=== PATIENT | female | born 1975 | race Caucasian/White ===

== ENCOUNTER 2025-08-27 19:35 | Emergency (ER) | payer BC, SELFPAY ==
[2025-08-27 19:38] VITALS: BP 112/74; PULSE 80; TEMP 36.6; O2SAT 100; BMI 25.8
--- NOTE | 2025-08-27 20:02 | XR_ITS ---
The [address] [address] Patient Name: ZACHARY TARANGO MRN: [id number] date: 1975 Sex: F Assigned Patient Location: ER Current Patient Location: Accession/Order Number: [id number] Exam Date: 08/27/2025 20:05 Report Date: 08/28/2025 07:52 At the request of: ANDREA CONCEPCION Procedure: XR ankle RT min 3V RIGHT ANKLE - 3 views CLINICAL DATA: Patient fell into hole yesterday. Previous ankle surgery. COMPARISON: None AP, lateral and oblique views were obtained. There are syndesmosis screws, one of which is fractured in 2 places. There is also a cannulated screw and K wire at the medial malleolus. There is old underlying fracture deformity. No definite acute fractures or dislocation are seen. There is anterolateral soft tissue swelling. XR/XR ankle RT min 3V IMPRESSION: CHRONIC FRACTURES WITH HARDWARE FAILURE. NO DEFINITE ACUTE BONY INJURY. SOFT TISSUE SWELLING. Impression dictated by: Marbella Lovell M.D. 08/28/2025 7:52 AM Dictation Location: [place] [address] Electronically authenticated by: [id number] Y Date: 08/28/2025 07:52
--- NOTE | 2025-08-27 20:02 | ED.LOWEXI1 ---
HPI HPI - Extremity Injury (Lower) General Chief Complaint: Extremity Injury, Lower Stated Complaint: LE INJURY Time Seen by Provider: 08/27/25 19:58 Source: patient and family Mode of arrival: walk-in Limitations: no limitations History of Present Illness MD complaint: Reports ankle injury Onset (ago): day(s) Type of Injury: Reports eversion Place: Reports street/outdoors Severity: moderate Relieving factors: Reports rest Exacerbating factors: Reports weight bearing and movement Context: Reports walking Associated symptoms: Reports snap/pop sensation, swelling and able to partially bear weight Treatments prior to arrival: Reports cold therapy Related Data Home Medications ?Medication ?Instructions ?Recorded ?Confirmed gabapentin 600 mg tablet mg 08/27/25 methocarbamol 750 mg tablet mg 08/27/25 spironolactone 50 mg tablet mg 08/27/25 Allergies Allergy/AdvReac Type Severity Reaction Status Date / Time Penicillins Allergy Hives Verified 08/27/25 19:43 Opioid HPI Opioid Management Most Recent Pain and Opioid Data: Last Pain Scale 8 Today, 19:48 Last ED Pain Assessment Today, 19:48 Prescription drug monitoring program results: PDMP reviewed and no issues identified Review of Systems ROS Musculoskeletal Reports: extremity pain, extremity swelling, joint pain, limited range of motion and joint swelling PFSH PFSH Social History Little interest or pleasure in doing things: not at all Feeling down, depressed, or hopeless: not at all Exam Constitutional Vital Signs, click to edit/add: Last Vital Signs Temp 97.8 F 08/27/25 19:38 Pulse 80 08/27/25 19:38 Resp 16 08/27/25 19:38 BP 112/74 08/27/25 19:38 Pulse Ox 100 08/27/25 19:38 O2 Del Method Room Air 08/27/25 19:38 Common normals: no apparent distress, average body habitus, oriented x3, no limitations, healthy appearing, alert and well nourished General appearance: cooperative, comfortable, well kempt and well developed Orientation/consciousness: Yes awake, Yes oriented to person, Yes oriented to place and Yes oriented to time Extremity Common normals: normal capillary refill and no calf tenderness Right lower extremity: ankle joint (Patient has edema, tenderness on palpation to the lateral aspect ) Other: There is no ecchymosis. Pedal pulse, dorsalis pedis pulse intact. Brisk capillary refill. No tenderness on the foot itself. Neuro Common normals: oriented x3, CN's II-XII intact bilaterally, moves all extremities, no focal motor deficits and no sensory deficits noted Sensorium/orientation: awake, alert, oriented to person, oriented to place and oriented to time (Gait minimally impaired by discomfort/edema) Speech: speech normal Psych Common normals: mental status grossly normal, thought process normal, cooperative, affect normal, speech normal and activity/motor behavior normal Appearance: grossly normal and well kempt Attitude: calm and engaged Activity/motor behavior: appropriate eye contact Speech: normal speech Mood and affect: euthymic mood Thought process: normal thought process Thought content: normal thought content Attention/concentration: attention grossly intact Memory/cognition: memory grossly intact Insight: insight good Judgement: judgment good Other: Patient daughter and present Course Course Hospital Course: Plain film x-rays reveal prior plates and screws. There is 1 screw that has been fractured, but that this appears old There is soft tissue edema. No new fractures noted. On further discussion with the patient, she was aware of this screw that was fractured. She had been offered to have this replaced. Since that had not been bothering her, she declined replacement. We placed a Joss wrap on the patient's ankle for compression dressing. Distal neurovascular was intact after Joss application. The patient was also provided with crutches for assistance with ambulation. I discussed the discharge diagnosis, plan of care, home-going instructions and follow-up information for orthopedics. The patient declined any prescription medications. She states she takes as needed ibuprofen and is doing fine with that. Patient was discharged to home in stable condition. She will follow-up with orthopedics. She is to return to the emergency department for any further problems or concerns. Vital Signs Vital signs: Vital Signs Temperature 97.8 F 08/27/25 19:38 Pulse Rate 80 08/27/25 19:38 Respiratory Rate 16 08/27/25 19:38 Blood Pressure 112/74 08/27/25 19:38 Pulse Oximetry 100 08/27/25 19:38 Oxygen Delivery Method Room Air 08/27/25 19:38 Temperature 97.8 F 08/27/25 19:38 Pulse Rate 80 08/27/25 19:38 Respiratory Rate 16 08/27/25 19:38 Blood Pressure 112/74 08/27/25 19:38 Pulse Oximetry 100 08/27/25 19:38 Oxygen Delivery Method Room Air 08/27/25 19:38 MDM - Extremity Injury (Lower) Differential Diagnosis Differential diagnosis: Likely ankle sprain and strain and other (Reinjury of prior surgical plate and screws; acute ankle fracture) Medical Records Attestation: I reviewed the patient's medical records. Imaging Data Ankle x-ray: My impression: Patient has prior plate and screws, with evidence of fracture of one of the screws, but this appears old. No new acute fractures identified. + Soft tissue swelling. On further discussion with the patient, she was aware of this screw that was fractured. They had offered to replace it and she declined replacement since it was not bothering her. Discharge Plan Discharge Chief Complaint: Extremity Injury, Lower Clinical Impression: Ankle sprain and strain Patient Disposition: Home, Self-Care Time of Disposition Decision: 20:32 Condition: Good Mode of Transportation: Private Vehicle Prescriptions / Home Meds: No Action gabapentin 600 mg tablet methocarbamol 750 mg tablet spironolactone 50 mg tablet Print Language: [place] Instructions: Ankle Sprain (DC), Crutch Instructions (ED), How to Use an Elastic Bandage (ED), P.R.I.C.E. Treatment (ED), Ice Pack Application (ED), Ankle Strain (ED), Cold Compress or Soak (ED) Referrals: LARRY JASON [Physician, Orthopedics] - 1 week
--- OUTSIDE RECORDS SUMMARY | 2025-08-27 20:47 | XMS_ITS | Clinical Summary ---
Author Organization [facility] Address [address] [place] [address] Care Team Providers Care Surveillance Supervisor Name Role Phone Nhan Moore MD Primary Care Provider [phone] Allergies Active AllergyReactionsCriticalityNoted QnxjDgyhkpvyMqokpehbzgk76/26/2022 Medications No known medications Social History Tobacco UseTypesPacks/DayYears UsedDateSmoking Tobacco: NeverSmokeless Tobacco: NeverAlcohol UseStandard Drinks/WeekCommentsNever0 (1 standard drink = 0.6 oz pure alcohol)CommentsNoSex and Gender InformationValueDate RecordedSex Assigned at BirthNot on fileLegal TokXzwlcb32/26/2022 3:59 PM ESTGender Identity Not on fileSexual OrientationNot on file Last Filed Vital Signs Vital SignReadingTime TakenCommentsBlood Msarukjo290/63011/30/2021 8:43 PM EST Gnsds476411/30/2021 8:43 PM FAEUrrydewmyqx60.5 ??C (97.7 ??F)11/30/2021 4:13 PM ESTRespiratory Khdt099711/30/2021 8:43 PM ESTOxygen Gmqltdhyut77%11/30/2021 8:43 PM ESTInhaled Oxygen Concentration--Weight--Cpwnqo257.1 cm (5' 5 )11/30/2021 4:14 PM ESTBody Mass Index-- Plan of Treatment Health MaintenanceDue DateLast DoneCommentsHEPATITIS C VIRUS SLHIIMMJP1977 LJUNWRU23 1975HIV SCREENING OILBMXLNKJ24/08/1992HEP B VACCINE (1 of 3 - 19+ 3-dose series)1996TDAP (ADULT)1996CERVICAL CANCER SCREENING BCEHPRHHNJ77/08/1998LIPID DHTEFACEQ09/08/2017MAMMOGRAM SCREENING DISCUSSION , 04/29/2018COLORECTAL CANCER SCREENING OXJGWENYZO13/08/2022 COVID-19 VACCINE (2024- season)2025INFLUENZA VACCINE (#1)2025 08/05/2019PNEUMOCOCCAL VACCINE SERIESAged OutNo longer eligible based on patient's age to complete this topic Insurance * Guarantor: Eva Tarango TypeRelation to PatientDate of BirthPhone Billing AddressPersonal/GxtlpvMznl1975 [facility] [place] [address] Care Teams Team MemberRelationshipSpecialtyStart DateEnd Date Nhan Moore MD [address] [place] [address] PCP - GeneralFamily Medicine11/30/21
--- OUTSIDE RECORDS SUMMARY | 2025-08-27 20:47 | XMS_ITS | Clinical Summary ---
Author Organization [facility] Address [id number] [place] [address] Care Team Providers Care Radio Engineering Teacher Name Role Phone Nhan Moore MD Primary Care Provider [phone] Allergies Active AllergyReactionsCriticalityNoted YvqbYnicdzzuXnpvjgvbuauVdrgw39/26/2022 Medications MedicationSigDispense QuantityRefillsLast FilledStart DateEnd DateStatus minocycline (MINOCIN,DYNACIN) 50 mg capsule Take 1 capsule (50 mg total) by mouth in the morning.04/22/2022ctive spironolactone (ALDACTONE) 50 mg tablet Take 1 tablet (50 mg total) by mouth in the morning.04/22/2022ctive methocarbamoL (ROBAXIN) 750 mg tablet Take 1 tablet (750 mg total) by mouth 4 (four) times a day as needed.06/02/2022 Active FIBERCON 625 mg tablet Take 2 tablets (1,250 mg total) by mouth in the morning.05/20/2022ctive oxyCODONE-acetaminophen (PERCOCET) 10-325 mg per tablet Take 1 tablet by mouth 4 (four) times a day as needed.06/25/2022ctive gabapentin (NEURONTIN) 600 mg tablet Indications:Cervical spondylosis without myelopathyTake 1 tablet (600 mg total) by mouth 3 (three) times a day. 90 tablet ctive polyethylene glycol 3350 (MIRALAX ORAL) Take by mouth daily. 1 Capful of Miralax dailyActive Active Problems ProblemNoted DateDiagnosed DateHeterogeneously dense tissue of both breasts on qblqeyupzro24/21/2023 Overview (02/17/2024): As a separate recommendation, due to the density and/or complexity of breast tissue on mammography,Molecular Breast Imaging is recommended as a supplement to annual screening mammography. MBI can beused to help detect mammographically occult cancers in dense breasts. Cervical spondylosis without wuzfkaptdv65/04/2022 Overview (07/08/2022): Added automatically from request for surgery [id number] Closed stable burst fracture of second thoracic gnyuhqax98/04/2022Closed nondisplaced fracture of second cervical ytvxbmwe23/04/2022Closed fracture dislocation of cervical spine12/01/2021 Family History Medical HistoryRelationNameCommentsCOPDFatherPulmonary fibrosisFatherEarly Maternal GrandfatherAndrew KaulingstrokeStrokeMaternal GrandfatherAndrew [place] StrokeMaternal GrandmotherMarie KaulingLymphomaMotherBack ProblemsSisterMultiple sclerosisSisterNeck ProblemsSisterBreast cancerNeg HxRelationNameStatusComments FatherDeceasedMaternal GrandfatherAndrew KaulingMaternal GrandmotherMarie KaulingMotherAliveSister Social History Tobacco UseTypesPacks/DayYears UsedDateSmoking Tobacco: NeverSmokeless Tobacco: Never Tobacco Cessation:Counseling Given: Not Answered Alcohol UseStandard Drinks/WeekCommentsNot Currently0 (1 standard drink = 0.6 oz pure alcohol)PHQ-2AnswerDate RecordedTotal Decbm488/08/2024ChildcareAnswerDate XibuiwgwVdbrsgawsYvbmrdy55/10/2019EmploymentAnswerDate RecordedEmploymentUnknown 03/14/2019Hunger ScreeningAnswerDate RecordedWithin the past 12 months we worried whether our food would run out before we got money to buy more.Never True11/25/2022Within the past 12 months the food we bought just didn't last and we didn't have money to get more.Never True3Purpose - LifeAnswerDate RecordedPurpose and direction in jnfpFydbarj90/10/2021CommentsNoSex and Gender InformationValueDate RecordedSex Assigned at IwjinHtamqg00/08/2024 12:16 PM EDTLegal AadQxuhsx36/04/2015 1:00 PM EDTGender WrdanljvPtmddu25/08/2024 12:16 PM EDTSexual OrientationNot on file Last Filed Vital Signs Vital SignReadingTime TakenCommentsBlood Dkqydvwx013/68002/10/2024 11:02 AM EDT Xvjpw0926 9:41 AM DXTObwzycgucmt69.7 ??C (98.1 ??F)12/08/2022 8:08 AM ESTRespiratory Dqfj015512/08/2022 9:41 AM ESTOxygen Ppiarzxazq10%12/08/2022 9:41 AM ESTInhaled Oxygen Concentration--Cdhcfl44.8 kg (165 lb)02/17/2024 8:01 AM EDT Lefmys238.6 cm (5' 6 )02/17/2024 8:01 AM EDTBody Mass Index26.63002/17/2024 8:01 AM EDT Plan of Treatment Health MaintenanceDue DateLast DoneCommentsDTaP,Tdap and Td Vaccines (1 - Tdap) 1996Depression Zxprudfsz30Tobacco Ofgidhymg34/08/2025 02/10/2024dult BMI Bnsvsibhr39Influenza Eqmgfle6206/05/2025 09/08/2024, 08/05/2019Pap Smear, 10/22/2022Mammogram , 03/25/2025, 02/17/2024, Additional history exists Medical Devices Not on file Procedures Procedure NamePriorityDate/TimeAssociated DiagnosisCommentsMAMM SCREENING BILATERAL W SECBdodvko07/21/2025 10:37 AM EDT Visit for screening mammogram PAP CTBJJCfzcmos81/18/2023 2:29 AM EST Cervical smear, as part of routine gynecological examination from Last 3 Months or Most Recently Relevant to Health Maintenance Results * Mammography screening bilateral with CAD (03/25/2025 10:37 AM EDT)Anatomical RegionLateralityModalityBreastBilateralMammographySpecimen (Source)Anatomical Location / LateralityCollection Method / VolumeCollection TimeReceived Time 03/28/2025 8:50 AM EDT Narrative 03/28/2025 8:59 AM EDT JIN TARANGO 1975 [id number] EXAM: MAMM SCREENING BILATERAL W CAD, 03/25/2025 10:22 AM CLINICAL INDICATIONS: Screening, Visit for screening mammogram COMPARISON: 02/17/2024 TECHNIQUE: Bilateral digital tomosynthesis MLO and CC views of the breasts were obtained, with creation of synthetic 2D views. Computer aided detection was utilized. FINDINGS: The breasts are extremely dense, which lowers the sensitivity of mammography. There are no suspicious masses, calcifications, or areas of architectural distortion. IMPRESSION: No mammographic evidence of malignancy. BI-RADS: BI-RADS 1 - Negative RECOMMENDATION: ??Routine screening mammogram in 1 year. Continued supplemental screening is recommended for this patient with dense breast tissue. Continued MBI or MRI exams may be considered. ?? RISK ASSESSMENT: TC Lifetime risk: 16.6%. The patient's reported personal and family medical history was used calculate their Tyrer-Cuzick lifetime risk of malignancy. Scores less than 20% are not considered high risk per ACR guidelines and patient should continue with the above recommendation. Finalized by Ez Mccarthy MD on 03/28/2025 8:59 AM 1 d MAMM 1 YR FDA Accredited Performing Facility: [facility] - Mammography[facility]DEXA [facility] [address] [facility] [id number] Procedure Note Ez Mccarthy MD - 03/28/2025 JIN TARANGO 1975 [id number] EXAM: MAMM SCREENING BILATERAL W CAD, 03/25/2025 10:22 AM CLINICAL INDICATIONS: Screening, Visit for screening mammogram COMPARISON: 02/17/2024 TECHNIQUE: Bilateral digital tomosynthesis MLO and CC views of the breastswere obtained, with creation of synthetic 2D views. Computer aideddetection was utilized. FINDINGS: The breasts are extremely dense, which lowers the sensitivity ofmammography. There are no suspicious masses, calcifications, or areas of architectural distortion. IMPRESSION: No mammographic evidence of malignancy. BI-RADS: BI-RADS 1 - Negative RECOMMENDATION: Routine screening mammogram in 1 year. Continuedsupplemental screening is recommended for this patient with dense breasttissue. Continued MBI or MRI exams may be considered. RISK ASSESSMENT: TC Lifetime risk: 16.6%. The patient's reported personal and family medical history was usedcalculate their Tyrer-Cuzick lifetime risk of malignancy. Scores less than20% are not considered high risk per ACR guidelines and patient shouldcontinue with the above recommendation. Finalized by Ez Mccarthy MD on 03/28/2025 8:59 AM 1 d MAMM 1 YR FDA Accredited Performing Facility: [facility] - Mammography[facility]DEXA Imaging [address] [place] [address] Authorizing ProviderResult TypeResult StatusRobert Wood Johnson University Hospital At Rahwayc Oscar ALCALAÁngel MAMMOGRAPHY ORDERABLESFinal Result * Pap Smear (10/22/2022 2:29 AM EST)Specimen (Source)Anatomical Location / LateralityCollection Method / VolumeCollection TimeReceived Time10/22/2022 2:29 AM EST10/22/2022 2:32 AM EST Narrative COPATH - 10/23/2022 9:26 AM EST [facility] ? Consult[facility] in Laboratory Medicine ? [address] [place] [address] ? [place] [address] ? Gynecologic Cytology Consultation ? Patient Name:JIN TARANGO:1975 (Age: 47)Gender:FTaken:10/22/2022Reported:3Physician(s):KIANNA Gaspar ([phone])Copy To: Rec. #:[id number]: #[id number] Final Cytologic Interpretation ThinPrep Pap Test (Cervical): Satisfactory for evaluation. A transformation zone component was not noted. NEGATIVE FOR INTRAEPITHELIAL LESION OR MALIGNANCY. ?? 10/23/2022 Interpretation performed at [facility], [address] [place] [address], License number: [id number]. Electronically Signed Out By ?Annie Iyer Date of Last Menstrual Period: ? 10/04/22 Other Clinical Conditions: Z01.419 Documentation Analyst exam wo/abn findings Source of Specimen ??ThinPrep Pap Test (Cervical) ? Thin Prep Pap (MASSAGE THERAPY INSTRUCTOR) Fee Code(s): ?? G0145 Authorizing ProviderResult TypeResult StatusElizabeth Mtz GRINDER TENDER-CORE OVEN TENDER PATHOLOGY/CYTOLOGY ORDERABLESFinal ResultPerforming OrganizationAddress City/State/ZIP CodePhone Number COPATH from Last 3 Months or Most Recently Relevant to Health Maintenance Insurance Care Teams Team MemberRelationshipSpecialtyStart DateEnd Date Nhan Moore MD PCP - GeneralFamily Medicine04/13/19
--- OUTSIDE RECORDS SUMMARY | 2025-08-27 20:47 | XMS_ITS | Clinical Summary ---
Author Organization [facility] Address [address], [address] [place] [address] Care Team Providers Care Surface Ship Usw Supervisor Name Role Phone Nhan Moore MD Primary Care Provider + Allergies Active AllergyReactionsCriticalityNoted QsjvPzvzeyazRqntllsefxcNbylp18/26/2022 Medications MedicationSigDispense QuantityRefillsLast FilledStart DateEnd DateStatus acetaminophen (TYLENOL) 500 MG tablet Take 2 tablets by mouth every 6 hours as needed for Pain 28 tablet 12/01/2021ctive oxyCODONE-acetaminophen (PERCOCET) 10-325 MG per tablet TAKE 1 TABLET BY MOUTH FOUR TIMES DAILY EZMSRE7801/08/2022ctive sertraline (ZOLOFT) 50 MG tablet TAKE 1 TABLET BY MOUTH DAILY12/31/2021ctive gabapentin (NEURONTIN) 300 MG capsule TAKE 1 CAPSULE BY MOUTH EVERY NIGHT AT BEDTIME ON DAY 1 THEN 1 CAPSULE TWICE DAILY ON DAY 2 THEN 1 CAPSULE THREE TIMES DAILY12/31/2021ctive methocarbamol (ROBAXIN) 750 MG tablet TAKE 1 TABLET BY MOUTH FOUR TIMES DAILY WWVHFC0012/28/2021ctive lactulose (CHRONULAC) 10 GM/15ML solution TAKE 30 ML BY MOUTH TWICE DAILY TZJEIY9212/09/2021ctive FIBER-LAX 625 MG tablet TAKE 2 TABLETS BY MOUTH DAILY12/09/2021ctive Active Problems ProblemNoted DateDiagnosed DateClosed fracture dislocation of cervical spine 12/01/2021losed nondisplaced fracture of second cervical vertebraClosed stable burst fracture of second thoracic vertebra Social History Tobacco UseTypesPacks/DayYears UsedDateSmoking Tobacco: NeverSmokeless Tobacco: NeverCommentsUnknownSex and Gender InformationValueDate RecordedSex Assigned at VxdacYvcxkx48/06/2022 8:19 AM EDTLegal LysBstwap28/10/2013 10:06 AM ESTGender AnryvbazWkhmod10/06/2022 8:19 AM EDTSexual OrientationNot on file Last Filed Vital Signs Vital SignReadingTime TakenCommentsBlood Jkcvdbah554/7804 12:53 PM EDT Nqypo4356 12:53 PM GEOFvltgehfaar71.7 ??C (98 ??F)12/01/2021 3:28 PM EST Respiratory Cjdo445412/01/2021 3:28 PM ESTOxygen Tetelcoybp14%01/13/2022 12:53 PM EDTInhaled Oxygen Concentration--Fwmitb18.7 kg (169 lb)01/13/2022 12:53 PM EDT Eouznr722.1 cm (5' 5 )01/13/2022 12:53 PM EDTBody Mass Index28.12001/13/2022 12:53 PM EDT Plan of Treatment Not on [place] [address] Advance Directives * Full Code (Latest Code Status on File) Date ActivatedDate InactivatedComments12/01/2021 2:10 AM12/01/2021 9:31 PM Care Teams Team MemberRelationshipSpecialtyStart DateEnd Date Nhan Moore MD [address] [place] [address] [facility]12/01/21
--- OUTSIDE RECORDS SUMMARY | 2025-08-27 20:47 | XMS_ITS | Clinical Summary ---
Author Organization [facility] Address [address] [place] [address] Care Team Providers Care Joint Setter Name Role Phone Nhan Moore MD Primary Care Provider [phone] Yecenia Thorne APRN-[facility] Unavailable Allergies Active AllergyReactionsCriticalityNoted DateCommentsPenicillin GHives,RashLow 9515BkwbqofipneMbmqp75/26/2022 Medications MedicationSigDispense QuantityRefillsLast FilledStart DateEnd DateStatus methocarbamol (Robaxin) 750 MG tablet Indications:Closed fracture of cervical vertebra, subsequent encounterTAKE 1 TABLET BY MOUTH FOUR TIMES DAILY NEEDED 90 tablet 4Active ammonium lactate (Amlactin) 12 % cream Indications:Porokeratosis,Right foot painApply topically Daily 140 g 506Active fluocinonide (Lidex) 0.05 % external solution Indications:Psoriasis vulgarisApply (1mL) to affected areas on the scalp, up to twice a day when flared, 30 day supply 60 mL 1105Active gabapentin (Neurontin) 600 MG tablet Indications:Cervical spinal stenosisTAKE 1 TABLET BY MOUTH THREE TIMES DAILY 90 tablet 5Active spironolactone (Aldactone) 25 MG tablet Indications:Acne vulgarisTake 1 tablet, by mouth, once daily, 30 days 30 tablet 1105Active spironolactone (Aldactone) 50 MG tablet Indications:Acne vulgarisTake 1 tablet (50 mg) by mouth Daily 30 tablet 5Active doxycycline (Monodox) 50 MG capsule Indications:Acne vulgarisTake 1 capsule, by mouth, once daily, 30 days 30 capsule 5Active Active Problems ProblemNoted DateDiagnosed DateAnnual physical exam03/20/2025 Assessment & Plan (03/20/2025 9:00 AM EDT): Will have labs in fall. Discussed proper diet and regular aerobic exercise. Need aerobic exercise 5-6 days a week for 30 minutes at a time. Smaller portions and limit total calories. Colonoscopy every 10 years. Tetanus every 10 years. Advised not to smoke. Wbxhxkgqedeo67/13/20246 bgddjjswjxpve76/01/2024egenerative disc disease, vvubeosu19/01/2024Whiplash injury to neck02/03/2024Other nerve root and plexus dktbdagmn78/09/2024Vision urhatxr0211/12/2023OCD (obsessive compulsive disorder) 11/12/2023Lumbar xrkpibhiavhyu50/01/2024Memory loss10/20/2023 Assessment & Plan (10/20/2023 12:33 PM EST): Several episodes where did not remember way to school or home and overall not mentally as sharp. Prior TBI and concerned of damage. Check MRI and follow up with neurology. Acne fvzlwewh72/07/2023egenerative cervical spinal thzituxm87/07/2023 Assessment & Plan (03/20/2025 9:00 AM EDT): Pain unchanged and use percocet PRN. Assessment & Plan (09/16/2024 11:56 AM EST): Pain unchanged and use percocet PRN. Assessment & Plan (09/10/2023 10:16 AM EST): Pain unchanged and use percocet PRN. JORDIN (generalized anxiety disorder)09/10/2023 Assessment & Plan (09/10/2023 10:16 AM EST): Mild symptoms but tolerable and monitor. History of traumatic brain rxvyqy5109/10/2023 Assessment & Plan (09/10/2023 10:16 AM EST): Frequent WILD and follow up with neurology. Irritable bowel syndrome with predominant mamuqypnhpup02/07/2023Overweight 09/10/2023Right carpal tunnel zwyhvgtd71/07/2023Heterogeneously dense tissue of both breasts on ockdwqbycwm25/21/2023 Overview (03/02/2024): As a separate recommendation, due to the density and/or complexity of breast tissue on mammography,Molecular Breast Imaging is recommended as a supplement to annual screening mammography. MBI can beused to help detect mammographically occult cancers in dense breasts. Resolved Problems ProblemNoted DateDiagnosed DateResolved VxjjUtnggbxypwvl15/13/202406/ Assessment & Plan (09/16/2024 11:56 AM EST): Labs showed glucose 50 but asymptomatic. Repeat labs and check insulin level. Eat regularly and do not skip meals. Difficulty yviayiy51 Encounters DateTypeDepartmentCare BjgdOdrwcpzbxkf23/18/2025 3:50 PM EDTOffice Visit [facility] [address] [place] [address] Yecenia Thorne APRN-[facility] Acne vulgaris; Seborrheic keratosis; EIC (epidermal inclusion cyst)06/22/2025amboo [facility]sheet [facility] [address] [place] [address] Yecenia Thorne APRN-CNP 06/22/2025Travelfrom Last 3 Months Family History Medical HistoryRelationNameCommentsCerebral palsyBrotherMarc BuechlerHearing lossBrotherMarc BuechlerCOPDFatherDavid BuechlerHypertensionFatherDavid Buechler StrokeFatherDavid BuechlerRestless legs syndromeMaternal GrandfatherMarie KaulingStrokeMaternal GrandfatherMarie KaulingCancerMotherJudith Buechler LymphomaParkinsonismPaternal GrandmotherIsabelle BuechlerMultiple sclerosis SisterJennramakrishna AlmanzarRelationNameStatusCommentsBrotherMarc BuechlerFatherDavid BuechlerMaternal GrandfatherMarie KaulingMotherJudith BuechlerPaternal GrandmotherIsabelle BuechlerSisterJenny Reginadamariswilliams Social History Tobacco UseTypesPacks/DayYears UsedDateSmoking Tobacco: NeverSmokeless Tobacco: Never Tobacco Cessation:Counseling Given: Not Answered Alcohol UseStandard Drinks/WeekCommentsNever0 (1 standard drink = 0.6 oz pure alcohol)Caffeine Intake: 1-2 cups per dayHumiliation, Afraid, Rape, and Kick questionnaireAnswerDate RecordedWithin the last year, have you been afraid of your partner or ex-partner?No09/09/2023Within the last year, have you been humiliated or emotionally abused in other ways by your partner or ex-partner?No 09/09/2023Within the last year, have you been kicked, hit, slapped, or otherwise physically hurt by your partner or ex-partner?No09/09/2023Within the last year, have you been raped or forced to have any kind of sexual activity by your part ner or ex-partner?No09/09/2023Social Connection and Isolation PanelAnswerDate RecordedIn a typical week, how many times do you talk on the phone with family, friends, or neighbors?More than three times a week09/09/2023How often do you get together with friends or relatives?Once a week09/09/2023How often do you attend druze or jainism services?More than 4 times per year09/09/2023o you belong to any clubs or organizations such as druze groups, unions, fraternal or athletic groups, or school groups?No09/09/2023How often do you attend meetings of the clubs or organizations you belong to?Patient kxetvfbk97/06/2023re you , , , , never , or living with a partner? Ojuqkcg6009/09/2023UDIT-CAnswerDate RecordedQ1: How often do you have a drink containing alcohol?Never09/09/2023Q2: How many drinks containing alcohol do you have on a typical day when you are drinking?Patient does not drink09/09/2023Q3: How often do you have six or more drinks on one occasion?Never09/09/2023Overall Financial Resource Strain (CARDIA)AnswerDate RecordedHow hard is it for you to pay for the very basics like food, housing, medical care, and heating?Not very hard09/09/2023[facility] [place] [facility] - Occupational Stress QuestionnaireAnswerDate RecordedDo you feel stress - tense, restless, nervous, or anxious, or unable to sleep at night because yourmind is troubled all the time - these days?To some qivdhv4909/09/2023Exercise Vital SignAnswerDate Recorded On average, how many days per week do you engage in moderate to strenuous exercise (like a brisk walk)?2 days09/09/2023On average, how many minutes do you engage in exercise at this level?20 min09/09/2023Hunger Vital SignAnswerDate RecordedWithin the past 12 months, you worried that your food would run out before you got the money to buymore.Never true09/09/2023Within the past 12 months, the food you bought just didn't last and you didn't have money to get more.Never true09/09/2023RAPARE - TransportationAnswerDate RecordedIn the past 12 months, has lack of transportation kept you from medical appointments or from getting medications?No09/09/2023In the past 12 months, has lack of transportation kept you from meetings, work, or from getting things needed for daily living?No09/09/2023Housing Stability Vital SignAnswerDate RecordedIn the last 12 months, was there a time when you were not able to pay the mortgage or rent on time?No09/09/2023Number of Places Lived in the Last YearNot on file 09/09/2023In the last 12 months, was there a time when you did not have a steady place to sleep or slept in ashelter (including now)?No3Comments UnknownSex and Gender InformationValueDate RecordedSex Assigned at BirthNot on fileLegal XpaTphseo85/15/2023 7:14 PM EDTGender IdentityNot on fileSexual OrientationNot on file Last Filed Vital Signs Vital SignReadingTime TakenCommentsBlood Fksqvtcb09/6406 8:29 AM EDT Ozvdt289403/20/2025 8:29 AM MQQVndudwfatuy05.6 ??C (97.8 ??F)03/20/2025 8:29 AM EDTRespiratory Elnx567403/20/2025 8:29 AM EDTOxygen Uocgzxxvei20%03/20/2025 8:29 AM EDTInhaled Oxygen Concentration--Fkxqqe92.6 kg (160 lb)03/20/2025 8:29 AM EDT Bqhnoz532.1 cm (5' 5 )03/20/2025 8:29 AM EDTBody Mass Index26.63003/20/2025 8:29 AM EDT Plan of Treatment DateTypeDepartmentCare Team (Latest Contact Info)Gquiihjefxd72/22/2026 8:30 AM EDTOffice Visit [facility] [address] [place] [address] Yecenia Thorne APRN-[facility] [address] [place] [address] Health MaintenanceDue DateLast DoneCommentsCT Elkpgnqmtfqa1977FIT-DNA 1977FIT1977FOBT1977 7062Yltlclpqfizdd1977Pap Smear1998 COVID-19 Vaccine ( season)2025Influenza Vaccine (#1)2025 09/08/20241389Ecnnltnhk91, 03/25/2025, 02/17/2024, Additional history existsCervical Cancer Fvdyqssdj30/18/2028HPV/Vfjpds41 Awnjrgyvhxm42/06/203303/03/2023, 12/08/2022olorectal Cancer Hlwnfzwyz59/06/2033 Pneumococcal Vaccine: Pediatrics (0 to 5 Years) and At-Risk Patients (6 to 64 Years)Aged OutNo longer eligible based on patient's age to complete this topic Procedures Procedure NamePriorityDate/TimeAssociated DiagnosisCommentsBI MAMMOGRAM SCREENING TOMOSYNTHESIS PUFIKZKLL59/24/2025 9:00 AM EDT from Last 3 Months or Most Recently Relevant to Health Maintenance Results * Bilateral screening mammogram with tomosynthesis (03/28/2025 9:00 AM EDT) Anatomical RegionLateralityModalityBreastBilateralMammographySpecimen (Source) Anatomical Location / LateralityCollection Method / VolumeCollection Time Received Time03/28/2025 9:00 AM EDT Narrative 03/28/2025 8:59 AM EDT THIS EXAM [facility] PERFORMED [facility]1975 [id number] EXAM: MAMM SCREENING BILATERAL W CAD, 03/25/2025 [...] MAMM 1 YR FDA Accredited Performing Facility: [facility] [address], [place] [address] Procedure Note Radiology, Radiologist, - 03/28/2025 THIS EXAM WAS PERFORMED AT [facility] [id number] EXAM: MAMM SCREENING BILATERAL W CAD, 03/25/2025 [...] MAMM 1 YR FDA Accredited Performing Facility: [facility] [address] [facility] [address] Authorizing ProviderResult TypeResult StatusJefferson [facility] ([facility])c Oscar PATRICIO BI PROCEDURES Final Result from Last 3 Months or Most Recently Relevant to Health Maintenance Insurance Care Teams Team MemberRelationshipSpecialtyStart DateEnd Date Nhan Moore MD [address] [place] [id number] [facility] - [facility] Yecenia Thorne, CUSTOMER CARE ASSISTANT-[facility] [address] [facility] [address] [place] [address] PCP - [facility]06/05/25
== END 2025-08-27 21:05 | disposition home or self-care (01) ==
PROVIDERS: Emergency Provider Emergency Medicine; PCP Family Medicine
DX: S93.401A Sprain of unspecified ligament of right ankle, initial encounter (principal); S96.911A Strain of unspecified muscle and tendon at ankle and foot level, right foot, initial encounter; W01.0XXA Fall on same level from slipping, tripping and stumbling without subsequent striking against object, initial encounter; X50.1XXA Overexertion from prolonged static or awkward postures, initial encounter
CPT/HCPCS: 73610; 99283